=== PATIENT | male | born 1940 | race Caucasian/White ===

== ENCOUNTER 2019-11-22 12:30 | Outpatient (CLI) | payer MEDICARE, OTHER ==
[2019-11-21 10:42] LABS: MICROSCOPIC AUTO
[2019-11-21 10:43] LABS: BASOPHILS # (AUTO) 0.04 x10^3/uL (0-0.1); BASOPHILS % (AUTO) 1 % (0-1); EOSINOPHILS # (AUTO) 0.14 x10^3/uL (0-0.4); EOSINOPHILS % (AUTO) 2 % (1-7); LYMPHOCYTES # (AUTO) 1.36 x10^3/uL (1-3.4); LYMPHOCYTES % (AUTO) 22 % (22-44); MD NO; MEAN CORPUSCULAR HEMOGLOBIN 29.8 pg (27.5-34.5); MEAN CORPUSCULAR HGB CONC 32.4 g/dL (33.2-36.2); MEAN PLATELET VOLUME 7.4 fL (7.4-10.4); MONOCYTES # (AUTO) 0.52 x10^3/uL (0.2-0.8); MONOCYTES % (AUTO) 9 % (2-9); NEUTROPHILS # (AUTO) 4.04 x10^3/uL (1.8-6.8); NEUTROPHILS % (AUTO) 66 % (42-75); PLATELET COUNT 241 x10^3/uL (130-400); RED BLOOD COUNT 4.34 x10^6/uL (4.38-5.82); RED CELL DISTRIBUTION WIDTH 14.3 % (9.4-14.8)
[2019-11-21 10:45] LABS: INTERNATIONAL NORMALIZED RATIO 1.01 (0.93-1.1); PROTHROMBIN TIME 10.7 Seconds (9.6-11.5)
[2019-11-21 10:49] LABS: ANION GAP 3 mmol/L (5-15); CALCIUM 8.4 mg/dL (8.5-10.1); CHLORIDE 110 mmol/L (98-107)
[2019-11-21 10:53] LABS: ALANINE AMINOTRANSFERASE 17 U/L (12-78); ALKALINE PHOSPHATASE 77 U/L (45-117); BILIRUBIN,TOTAL 0.6 mg/dL (0.2-1.0); CREATININE 1.69 mg/dL (0.7-1.3); TOTAL PROTEIN 6.5 g/dL (6.4-8.2)
[~2019-11-22] VITALS: Ht 182.9 cm; Wt 81.2 kg
[~2019-11-22 12:30] MED LIST: Will bring list DOS
[2019-11-22 12:59] VITALS: BP 176/83
[2019-11-22] MEDS ORDERED: ATOR40TA PO (13:03)
[2019-11-22] MEDS ORDERED: DONE10TA7 PO (13:03)
[2019-11-22] MEDS ORDERED: ATEN50TA41 PO (13:03)
[2019-11-22] MEDS ORDERED: LACTATED RINGERS 1,000 ML IV SCH (13:06)
[2019-11-22] MEDS ORDERED: CHLORHEXIDINE 15 ML UDC MM ONE (13:30)
== END 2019-11-22 23:59 | disposition home or self-care (01) ==
LOC: OR 12:30 → ORIP 12:30 → UNDOADMIN 12:30 → EDSTATUS 14:30 → UNDODISIN 15:00 → EDSTATUS 15:00 → OR 23:59
PROVIDERS: ATTEND Student in an Organized Health Care Education/Training Program
DX: N28.89 Other specified disorders of kidney and ureter (principal); Z11.59 Encounter for screening for other viral diseases; I12.9 Hypertensive chronic kidney disease with stage 1 through stage 4 chronic kidney disease, or unspecified chronic kidney disease; N18.9 Chronic kidney disease, unspecified; E78.5 Hyperlipidemia, unspecified; Z79.899 Other long term (current) drug therapy; Z87.891 Personal history of nicotine dependence; Z98.890 Other specified postprocedural states
CPT/HCPCS: 36415; 80053; 81001; 85025; 85610; 86850; 86900; 87086; 87635; 93005; J7120